=== PATIENT | female | born 1960 | race African-American/Black ===

== ENCOUNTER 2017-02-02 10:21 | Outpatient (CLI) | payer OTHER ==
--- NOTE | 2017-02-02 12:00 | XRay Report ---
THORACIC SPINE: History: Pain. The bones are normally mineralized with well preserved vertebral height, alignment and interspace distances. No paraspinal soft tissue widening is noted. IMPRESSION: Normal study.
--- NOTE | 2017-02-02 12:01 | XRay Report ---
CERVICAL SPINE, 5 VIEWS: History: Cervicalgia. The vertebral bodies are well mineralized and normal in alignment and vertebral height with well preserved interspace distances. The visualized portions of the posterior elements are normal. The oblique images suggest wide patency of the neural foramen. IMPRESSION: Normal study.
== END 2017-02-02 10:22 | disposition home or self-care (01) ==
LOC: XRAY 10:21
PROVIDERS: ATTEND Internal Medicine
DX: M54.2 Cervicalgia (principal); M54.6 Pain in thoracic spine
CPT/HCPCS: 72040; 72070